=== PATIENT | female | born 1980 | race Two or more races ===

== ENCOUNTER 2023-09-25 10:47 | Emergency (ER) | payer MEDICAID ==
[~2023-09-25] VITALS: Ht 157.5 cm; Wt 77.3 kg
[~2023-09-25 10:47] MED LIST: ACET-3385 PO
[2023-09-25 10:58] VITALS: TEMP 99
[2023-09-25 11:14] VITALS: BP 134/89; PULSE 88; RESP 16
[2023-09-25] MEDS: AMOX TR/POT CLAV 875 MG/125 MG TABLET PO ONE (12:03)
[2023-09-25] MEDS: PERTUSS(ACELL),DIPH,TET VAC/PF 0.5 ML SYRINGE IM. ONE (12:16)
[2023-09-25] MEDS ORDERED: AMOX1TAB16 PO (12:49)
== END 2023-09-25 12:30 | disposition home or self-care (01) ==
LOC: EMS 10:47
DX: S71.152A Open bite, left thigh, initial encounter (principal); W54.0XXA Bitten by dog, initial encounter; Y93.89 Activity, other specified; Y92.89 Other specified places as the place of occurrence of the external cause; Y99.8 Other external cause status
CPT/HCPCS: 90471; 90715; 99283